=== PATIENT | male | born 1995 | race Caucasian/White ===

== ENCOUNTER 2016-05-31 12:14 | Day surgery (SDC) | payer BC ==
[~2016-05-31] VITALS: Ht 165.1 cm; Wt 85.6 kg
[~2016-05-31 12:14] MED LIST: CLON-379 PO; METH54TA4 PO
[2016-05-31 13:33] VITALS: Ht 165.1 cm; Wt 85.6 kg
[2016-05-31] MEDS ORDERED: PROPOFOL 20 ML ONE ×2 (15:08→15:31)
[2016-05-31 15:18] VITALS: BP 118/74; PULSE 100; RESP 17
[2016-05-31 16:05] VITALS: BP 107/62; PULSE 96; RESP 15
--- NOTE | 2016-06-01 07:04 | GILP ---
DATE OF PROCEDURE: NAME OF PROCEDURE: Colonoscopy to cecum. SURGEON: Yvan Manjarrez MD PREOPERATIVE DIAGNOSIS(ES) POSTOPERATIVE DIAGNOSIS(ES) BRIEF HISTORY AND INDICATIONS: The patient is being evaluated for persistent abdominal pain, thus f ar unexplained. Also significant constipation. Previous attempts at colonoscopy were limited due to poor preparation. PREMEDICATION: Monitored anesthesia care by anesthesiologist. INSTRUMENT USED: Olympus colonoscope. PREPARATION: Poor, extensor levator was applied. TECHNIQUE: After informed consent, with the patient/relatives understanding the procedure, its indic ations potential risks and complications, including but not limited to: allergic reaction, bleeding, perforation, infection, missed lesions and after all pertinent questions were answered to the patie nt's satisfaction, the patient/relatives signed the witnessed informed consent. Following this, premedication was administered slowly IV push by under careful cardiovascular and re spiratory monitoring with pulse oximetry, automatic blood pressure and surveillance system monitor. Once the sedativ e effect was achieved, the patient was placed in the left lateral decubitus position, digital rectal examination was performed. The colonoscope was then introduced and advanced under visual control th roughout all segments of the colon including: the rectum, sigmoid, descending colon, splenic flexure , transverse colon, hepatic flexure, ascending colon and finally reaching the cecum which was clearl y identified by transillumination, finger indentation and the ileocecal valve. Careful examination o f the mucosa of the lower gastrointestinal tract both on insertion as well as withdrawal of the inst rument disclosed the following findings: Rectal Examination: No evidence of perirectal disease, no masses. Colonic Mucosa: The colonic mucosa is essentially unremarkable with the exception of areas that are poorly prepared. No mucosal abnormalities are present. The ileocecal valve was clearly identified . Extensor levator was applied. No additional abnormalities are noted with the exception of small to moderate size internal hemorrhoids. The instrument was then withdrawn, the patient tolerated the procedure well and was transferred out of the [facility] awake and in good condition to continue recovery under observation. IMPRESSION: 1. Poor preparation, precludes optimal examination. 2. No gross lesions present, extensor levator was applied. 3. Small internal hemorrhoids. PLAN: The patient will be continued on present regimen, and further recommendation will depend on h is clinical course. Dictated By: YVAN MANJARREZ MS/JEFF Conf#: [id number] DID#: [id number]
== END 2016-05-31 16:25 | disposition home or self-care (01) ==
LOC: GIL 12:14
PROVIDERS: ATTEND Internal Medicine Gastroenterology
DX: R10.9 Unspecified abdominal pain (principal); K64.8 Other hemorrhoids
CPT/HCPCS: 45378; Z7610